=== PATIENT | male | born 1965 | race Caucasian/White ===

== ENCOUNTER 2022-09-05 05:30 | Day surgery (SDC) | payer MEDICAID ==
[~2022-09-05] VITALS: Ht 160 cm; Wt 93.0 kg
[2022-09-05] MEDS ORDERED: SIMETHICONE 40 MG/0.6 ML ML ONE (06:57)
[2022-09-05] MEDS ORDERED: MIDAZOLAM HCL 5 MG/5 ML VIAL ONE (06:58)
[2022-09-05] MEDS ORDERED: MEPERIDINE HCL/PF 25 MG/ML DISP.SYRIN ONE (06:58)
[2022-09-05 17:20] VITALS: BP_SYST 90
== END 2022-09-05 10:56 | disposition home or self-care (01) ==
LOC: SDS 05:30 → SMU 05:30 → SDS 10:56
PROVIDERS: ATTEND Internal Medicine Gastroenterology
DX: Z12.11 Encounter for screening for malignant neoplasm of colon (principal); D12.5 Benign neoplasm of sigmoid colon; D12.8 Benign neoplasm of rectum; K57.30 Diverticulosis of large intestine without perforation or abscess without bleeding; K64.8 Other hemorrhoids; I10 Essential (primary) hypertension; E11.9 Type 2 diabetes mellitus without complications; E03.9 Hypothyroidism, unspecified; F17.210 Nicotine dependence, cigarettes, uncomplicated; Z79.899 Other long term (current) drug therapy
CPT/HCPCS: 45380; 45385; 87426; 36415; 88305; 99152; 99153; G0378; J2250; 45384; J2175